=== PATIENT | male | born 1940 | race Caucasian/White ===

== ENCOUNTER → 2017-07-06 | Outpatient (CLI) | payer MEDICARE, OTHER ==
[~2017-07-06] MED LIST: ACTOS 30 MG TAB30 MG PO; AGGRENOX CAPSU1 EACH PO; AMLODIPINE BESY10 MG PO; AVODART; AVODART0.5 MG PO; BENICAR HCT 401 EAC1 PO; BENICAR HCT 401 EACH PO; CARVEDILOL6.25 MG PO; DICLOFENAC SODI75 M1; GLIPIZIDE XL10 MG PO; GLIPIZIDE XL5 MG PO; GLUCOPHAGE1000 MG PO; KAPVAY0.1 MG PO; LIPITOR80 MG PO; MOBIC15 MG PO; NIASPAN 500 MG500 M1 PO; TEKTURNA HCT 31 EACH PO; TEKTURNA300 MG PO
== END ==
LOC: M.MRI 08:00
DX: S46.012A Strain of muscle(s) and tendon(s) of the rotator cuff of left shoulder, initial encounter (principal); M75.82 Other shoulder lesions, left shoulder; M19.012 Primary osteoarthritis, left shoulder; X58.XXXA Exposure to other specified factors, initial encounter; Y93.89 Activity, other specified; Y92.89 Other specified places as the place of occurrence of the external cause; Y99.8 Other external cause status